=== PATIENT | female | born 1985 | race Caucasian/White ===

== ENCOUNTER 2018-11-21 15:44 | Emergency (ER) | payer MEDICAID ==
[~2018-11-21] VITALS: Ht 167.6 cm; Wt 99.8 kg
[2018-11-21 15:49] VITALS: BP 139/81
[2018-11-21 15:50] VITALS: BP 139/81
--- NOTE | 2018-11-21 15:50 | NUR ---
bib self with c/o chest pain x 2-3 day ago with left arm pain. sharp 9/10 pain scale. pt states chest pain feels like a tightness, comes and goes, pt states chest pain happen a couple of days ago and now it happening again. pt is aaox4, vss at this time, with steady gait, pt bed down. low, locked, bedrail up x 1, er md aware and notified of pt status. pmh: hyperthyroid rx: ativan ( as needed)
--- NOTE | 2018-11-21 16:06 | NUR ---
Patient being evaluated by physician at bedside.
[2018-11-21] MEDS ORDERED: ONDANSETRON 4 MG ODT PO ONE (16:10)
[2018-11-21] MEDS ORDERED: KETOROLAC 60 MG/2 ML VIAL IM ONE (16:10)
--- NOTE | 2018-11-21 16:41 | NUR ---
Patient discharged with v/s stable. Written and verbal after care instructions given and explained. Patient alert, oriented and verbalized understanding of instructions. Ambulatory with steady gait. All questions addressed prior to discharge. ID band removed. Patient advised to follow up with PMD. Rx of motrin, zofran, prednisone given. Patient educated on indication of medication including possible reaction and side effects. Opportunity to ask questions provided and answered.
== END 2018-11-21 16:41 | disposition home or self-care (01) ==
LOC: MED 15:44
DX: R07.89 Other chest pain (principal); R05 Cough; R11.2 Nausea with vomiting, unspecified; E03.9 Hypothyroidism, unspecified; E11.9 Type 2 diabetes mellitus without complications; I10 Essential (primary) hypertension
CPT/HCPCS: 81002; 81025; 96372; 99283; J1885; Q0162; 93005

== ENCOUNTER 2019-06-16 13:15 | Emergency (ER) | payer MEDICAID ==
[~2019-06-16] VITALS: Ht 167.6 cm; Wt 94.4 kg
[2019-06-16 13:20] VITALS: BP 111/69
--- NOTE | 2019-06-16 13:25 | NUR ---
DR BARRAGAN AT BEDSIDE FOR PT EVALUATION
--- NOTE | 2019-06-16 13:35 | NUR ---
BIB SELF. AAO X4 C/O LOWER ABD CRAMPING PAIN X 1 WEEK. LMP 04/23/19, 7 WEEKS , AYALA 01/25/20, . NO VAGINAL BLEEDING. PT STATES DYSURIA, VAGINAL WHITE DISCHARGE--PT STATES ITCHINESS. PT DENIES FEVER, N/V/D, SOB. PT STATES THAT SHE HASN'T HAD ANY CARE DUE TO INSURANCE ISSUES. PT DENIES TAKING VITAMINS. ER TO EVALUATE PT.
--- NOTE | 2019-06-16 13:35 | NUR ---
Patient ambulated to bed 3. RN evaluating patient at bedside.
[2019-06-16 13:45] LABS: BASOPHILS % (AUTO) 0.1 % (0.0-2.0); EOSINOPHILS % (AUTO) 0.3 % (0.0-4.0); HEMATOCRIT 37.2 % (36-48); HEMOGLOBIN 12.7 g/dL (12.0-16.0); LYMPHOCYTES # (AUTO) 1.6 K/uL (2.5-16.5); LYMPHOCYTES % (AUTO) 16.8 % (20.5-51.1); MEAN CORPUSCULAR HEMOGLOBIN 30 pg (27-31); MEAN CORPUSCULAR HGB CONC 34 g/dL (33-37); MEAN CORPUSCULAR VOLUME 86.7 fL (80-94); MONOCYTES # (AUTO) 0.3 K/uL (0.8-1.0); MONOCYTES % (AUTO) 3.3 % (1.7-9.3); NEUTROPHILS # (AUTO) 7.6 K/uL (1.8-7.7); NEUTROPHILS % (AUTO) 79.5 % (42.2-75.2); PLATELET COUNT (AUTO) 254 K/uL (140-450); RED CELL DISTRIBUTION WIDTH 14.2 % (11.6-13.7); WHITE BLOOD COUNT (AUTO) 9.6 K/uL (4.8-10.8)
[2019-06-16 14:05] LABS: ALBUMIN 3.4 g/dL (3.4-5.0); ANION GAP 13.3 (8-16); CARBON DIOXIDE 27.4 mmol/L (21-32); CREATININE 0.8 mg/dL (0.6-1.3); POTASSIUM 3.7 mmol/L (3.5-5.1); TOTAL BILIRUBIN 0.7 mg/dL (0.0-1.0)
--- NOTE | 2019-06-16 14:40 | NUR ---
AAO X4, FULL CLEAR SPEECH. EVEN AND UNLABORED BREATHING. NO SIGNS AND SYMPTOMS OF DISTRESS NOTED.
[2019-06-16 14:49] LABS: BILIRUBIN,URINE NEGATIVE (NEGATIVE); BLOOD, URINE NEGATIVE (NEGATIVE); COLOR,URINE YELLOW (YELLOW); LEUKOCYTE ESTERASE ,URINE TRACE (NEGATIVE); NITRITE, URINE NEGATIVE (NEGATIVE); UGLUCOSE NEGATIVE (NEGATIVE)
[2019-06-16 14:57] LABS: APPEARANCE,URINE HAZY (CLEAR)
[2019-06-16 15:09] LABS: RBC,URINE NONE SEEN /HPF (0-5); WBC,URINE 0-5 /HPF (0-5)
--- NOTE | 2019-06-16 15:36 | NUR ---
CHAPERONED DR MCALLISTER FOR EXTERNAL VAGINAL EXAM. PT TOLERATED WELL.
[2019-06-16 15:48] VITALS: BP 102/55
--- NOTE | 2019-06-16 15:48 | NUR ---
Patient discharged with v/s stable. Written and verbal after care instructions given and explained. Patient alert, oriented and verbalized understanding of instructions. Ambulatory with steady gait. All questions addressed prior to discharge. ID band removed. Patient advised to follow up with PMD. Rx of MACROBID CAPSULE, [employer] MULTI+ DHA SOFTGEL, [employer] MICONAZOLE 3 COMBINATION PACK, ACETAMINOPHEN 500 MG given. Patient educated on indication of medication including possible reaction and side effects. Opportunity to ask questions provided and answered.
== END 2019-06-16 15:48 | disposition home or self-care (01) ==
LOC: MED 13:15
DX: O23.591 Infection of other part of genital tract in pregnancy, first trimester (principal); O23.41 Unspecified infection of urinary tract in pregnancy, first trimester; B37.3 Candidiasis of vulva and vagina; Z3A.01 Less than 8 weeks gestation of pregnancy; Z86.39 Personal history of other endocrine, nutritional and metabolic disease; Z98.890 Other specified postprocedural states
CPT/HCPCS: 36415; 76817; 80053; 81001; 81025; 83690; 84702; 85025; 86900; 86901; 99284; Q0092

== ENCOUNTER 2020-02-11 18:34 | Emergency (ER) | payer MEDICAID ==
[~2020-02-11] VITALS: Ht 167.6 cm; Wt 96.3 kg
[2020-02-11 18:43] VITALS: BP 106/65
--- NOTE | 2020-02-11 18:54 | NUR ---
PATIENT DENIES ANY SUICIDAL IDEATION AND NO DESIRE TO HARM OTHERS. IS SAFE AT HOME WITH THE FATHER.
--- NOTE | 2020-02-11 19:00 | NUR ---
Patient ambulated to bed 4. RN evaluating patient at bedside.
[2020-02-11] MEDS ORDERED: ATI.5 PO (19:06)
--- NOTE | 2020-02-11 19:13 | NUR ---
34 Y/O FEMALE PRESENTS TO ER WITH DEPRESSION, AND ANXIETY S/P VAGINAL DELIVERY X 2 WEEKS AGO. PT STATES SHE HAS BEEN FEELING "LOST, OVERWHELMED" SINCE HAVING BABY. DENIES SI/HI. PT STATES SHE HAS BEING SEEING PMD, FOR ANXIETY, AND DEPRESSION SINCE PSYCHIATRIST MOVED AWAY A FEW YEARS AGO. PT CAN'T SEE PMD DUE TO OFFICE BEING CLOSED. PT STATES SHE HAD BEEN TAKING CELEXA 40MG X 4 YRS, BUT ITS NOT WORKING ANYMORE. LAST TAKEN X 2 DAYS AGO. ALSO TAKES ATIVAN 1MG X 5YRS, BUT HAS ONLY 3 PILLS LEFT. PT STATES SHE WOULD LIKE TO TRY LEXAPRO, HAS DONE SOME RESEARCH AND BELIEVES ITS LIKE CELEXA. DOES NOT WANT/LIKE ZOLOFT, DOESN'T LIKE THE SIDE EFFECTS. PT DENIES SOB, COUGH, NAUSEA, VOMITING, FEVER. HAD DIARRHEA EARLIER TODAY. R/R EQUAL, AND UNLABORED. SIDERAIL X1, WILL CONTINUE TO MONITOR. NKDA PMHX: HYPERTHYROIDISM; GESTATIONAL DIABETES
--- NOTE | 2020-02-11 19:40 | NUR ---
ERMD AT BEDSIDE
[2020-02-11 20:01] VITALS: BP 106/65
== END 2020-02-11 20:01 | disposition home or self-care (01) ==
LOC: MED 18:34
DX: O99.345 Other mental disorders complicating the puerperium (principal); F53.0 Postpartum depression; E03.9 Hypothyroidism, unspecified; Z98.890 Other specified postprocedural states; Z79.899 Other long term (current) drug therapy
CPT/HCPCS: 99283

== ENCOUNTER 2020-09-18 16:50 | Emergency (ER) | payer MEDICAID ==
[~2020-09-18] VITALS: Ht 167.6 cm; Wt 99.8 kg
[~2020-09-18 16:50] MED LIST: ATI.5 PO
[2020-09-18 17:58] VITALS: BP 101/75
--- NOTE | 2020-09-18 18:08 | NUR ---
35/F BIB SELF C/O RIGHT FACE PAIN X 2 WEEKS. PMH: HYPERTHYROID, TMJ, DM.
[2020-09-18] MEDS ORDERED: KETOROLAC 60 MG/2 ML VIAL IM ONE (18:15)
[2020-09-18 18:47] VITALS: BP 101/75
--- NOTE | 2020-09-18 18:48 | NUR ---
Patient discharged with v/s stable. Written and verbal after care instructions given and explained. Patient alert, oriented and verbalized understanding of instructions. Ambulatory with steady gait. All questions addressed prior to discharge. ID band removed. Patient advised to follow up with PMD. Rx of NAPROSYN & OXCARBAZEPINE given. Patient educated on indication of medication including possible reaction and side effects. Opportunity to ask questions provided and answered.
== END 2020-09-18 18:48 | disposition home or self-care (01) ==
LOC: MED 16:50
DX: G50.0 Trigeminal neuralgia (principal); M26.609 Unspecified temporomandibular joint disorder, unspecified side; E11.9 Type 2 diabetes mellitus without complications; E05.90 Thyrotoxicosis, unspecified without thyrotoxic crisis or storm; Z79.899 Other long term (current) drug therapy
CPT/HCPCS: 96372; 99283; J1885

== ENCOUNTER 2021-02-14 15:01 | Emergency (ER) | payer MEDICAID ==
[~2021-02-14] VITALS: Ht 167.6 cm; Wt 99.8 kg
[2021-02-14 15:03] VITALS: BP 129/48
--- NOTE | 2021-02-14 15:25 | NUR ---
35/F presents to ED with c/o 8/10 aching chest pain radiating to right jaw since this morning. Patient states she took two ativan yesterday and had one beer last night and began to feel weak, light headed and have nausea and vomiting. Patient denies any vomiting today but states she still has nausea and shortness of breath and one episode of diarrhea. Patient reports taking two motrin 30 minutes prior to arriving to ER for the chest pain but states minimal relief. Patient denies cough, dysuria/hematuria.
--- NOTE | 2021-02-14 16:19 | NUR ---
Dr. Barr is evaluating the patient at bedside.
[2021-02-14] MEDS ORDERED: KETOROLAC 60 MG/2 ML VIAL IM ONE (16:30)
--- NOTE | 2021-02-14 16:42 | NUR ---
Went in room to medicate patient, patient was not in room, checked both bathrooms. Patient eloped from facility, Dr. Barr made aware.
== END 2021-02-14 16:42 | disposition left against medical advice (07) ==
LOC: MED 15:01
DX: R07.9 Chest pain, unspecified (principal); R11.2 Nausea with vomiting, unspecified; R19.7 Diarrhea, unspecified; R10.9 Unspecified abdominal pain; E11.9 Type 2 diabetes mellitus without complications; E07.9 Disorder of thyroid, unspecified
CPT/HCPCS: 81002; 81025; 93005; 96372; 99283; J1885

== ENCOUNTER 2021-10-31 19:06 | Emergency (ER) | payer MEDICAID ==
[~2021-10-31] VITALS: Ht 167.6 cm; Wt 103.4 kg
[2021-10-31 20:10] VITALS: BP 134/89
--- NOTE | 2021-10-31 20:13 | NUR ---
TO LOBBY A/W BED AMBULATORY
--- NOTE | 2021-10-31 21:30 | NUR ---
swabs obtained and sent to lab
[2021-10-31] MEDS ORDERED: ACET-10509 PO (22:19)
[2021-10-31] MEDS ORDERED: [UNRECOGNIZED DRUG - CODE] PO (22:19)
[2021-10-31] MEDS ORDERED: PSEU120T23 PO (22:19)
[2021-10-31 23:55] VITALS: BP 107/42
--- NOTE | 2021-10-31 23:55 | NUR ---
Patient discharged with v/s stable. Written and verbal after care instructions given and explained. Patient alert, oriented and verbalized understanding of instructions. Ambulatory with steady gait. All questions addressed prior to discharge. ID band removed. Patient advised to follow up with PMD. Rx of TYLENOL, GUAIFENESIN, SUDAFED given. Patient educated on indication of medication including possible reaction and side effects. Opportunity to ask questions provided and answered.
== END 2021-10-31 23:55 | disposition home or self-care (01) ==
LOC: MED 19:06
DX: J06.9 Acute upper respiratory infection, unspecified (principal); Z20.822 Contact with and (suspected) exposure to COVID-19; E11.9 Type 2 diabetes mellitus without complications; E07.9 Disorder of thyroid, unspecified; Z79.899 Other long term (current) drug therapy
CPT/HCPCS: 71045; 99284

== ENCOUNTER 2024-02-03 15:53 | Emergency (ER) | payer MEDICAID ==
[~2024-02-03] VITALS: Ht 167.6 cm; Wt 99.8 kg
[~2024-02-03 15:53] MED LIST changes: +ACET-10509 PO; +PSEU120T23 PO; +[UNRECOGNIZED DRUG - CODE] PO
[2024-02-03 16:02] VITALS: BP 143/82; PULSE 63; RESP 16; TEMP 97.3; O2SAT 63
[2024-02-03] MEDS ORDERED: LORA-476 PO (16:24)
[2024-02-03 16:28] VITALS: BP 143/82; PULSE 63; RESP 16; TEMP 97.3; O2SAT 63
== END 2024-02-03 16:28 | disposition home or self-care (01) ==
LOC: MED 15:53
DX: F41.1 Generalized anxiety disorder (principal); Z76.0 Encounter for issue of repeat prescription; R03.0 Elevated blood-pressure reading, without diagnosis of hypertension; E11.9 Type 2 diabetes mellitus without complications; E05.90 Thyrotoxicosis, unspecified without thyrotoxic crisis or storm; Z79.899 Other long term (current) drug therapy
CPT/HCPCS: 99281